=== PATIENT | male | born 1985 | race Two or more races ===

== ENCOUNTER 2020-11-19 11:23 | Inpatient (IN) | payer OTHER ==
[~2020-11-19] VITALS: Ht 170.2 cm; Wt 65.8 kg
--- NOTE | 2020-11-19 11:50 | NUR ---
L QUADRANT PAIN, HAND TREMORS SINCE 9AM. ADMITS TO DAILY ETOH. PATIENT A/OX4, BREATHING EVEN AND UNLABORED, NO SOB NOTED. NO DISTRESS NOTED. PLACED ON THE INTERVENTION TEACHER.
[2020-11-19] MEDS ORDERED: MAG HYDROX/AL HYDROX/SIMETH 30 ML UDC ONE (12:25)
[2020-11-19] MEDS ORDERED: ONDANSETRON HCL/PF 4 MG/2 ML VIAL IVP ONE (12:30)
[2020-11-19] MEDS ORDERED: IV NS 0.9% 1,000 ML BAG IV ONE ×2 (12:30→14:30)
[2020-11-19] MEDS ORDERED: MAG HYDROX/AL HYDROX/SIMETH 30 ML UDC PO ONE (12:30)
[2020-11-19] MEDS ORDERED: ONDANSETRON HCL/PF 4 MG/2 ML VIAL ONE (12:41)
[2020-11-19 12:56] LABS: BASOPHILS # (AUTO) 0.2 K/uL (0.0-0.2); BASOPHILS % (AUTO) 3.5 % (0.0-2.0); EOSINOPHILS % (AUTO) 0.5 % (0.0-6.0); HEMATOCRIT 42 % (39-51); HEMOGLOBIN 14.1 g/dL (13.5-17.5); LYMPHOCYTES # (AUTO) 0.5 K/uL (0.8-4.8); LYMPHOCYTES % (AUTO) 11.3 % (20.0-44.0); MEAN CORPUSCULAR HGB CONC 33 g/dl (31.0-36.0); MEAN CORPUSCULAR VOLUME 96 fL (80-96); MONOCYTES # (AUTO) 0.5 K/uL (0.1-1.30); MONOCYTES % (AUTO) 10.8 % (2.0-12.0); NEUTROPHILS # (AUTO) 3.4 K/uL (1.8-8.9); NEUTROPHILS % (AUTO) 73.9 % (43.0-81.0); PLATELET COUNT (AUTO) 133 K/uL (150-450); RED BLOOD CELL COUNT(AUTO) 4.42 MIL/uL (4.5-6.0); WHITE BLOOD COUNT (AUTO) 4.6 K/uL (4.3-11.0)
[2020-11-19 13:17] LABS: CALCIUM, SERUM 8.3 mg/dL (8.5-10.1); CARBON DIOXIDE 30 mmol/L (21-32); CHLORIDE 103 mmol/L (98-107); CREATININE 0.8 mg/dL (0.6-1.3); GLUCOSE 103 mg/dL (74-106); POTASSIUM 3.9 mmol/L (3.5-5.1); SODIUM SERUM 143 mmol/L (136-145); UREA NITROGEN, BLOOD 5 mg/dL (7-18)
[2020-11-19 13:23] LABS: ALANINE AMINOTRANSFERASE 103 U/L (12-78); ALKALINE PHOSPHATASE 114 U/L (46-116); ASPARTATE AMINOTRANSFERASE 87 U/L (15-37); BILIRUBIN,DIRECT 0.2 mg/dL (0.0-0.2); BILIRUBIN,TOTAL 0.5 mg/dL (0.2-1.0); TOTAL PROTEIN, SERUM 7.5 g/dL (6.4-8.2)
[2020-11-19 14:08] LABS: LIPASE 5783 U/L (73-393)
[2020-11-19] MEDS ORDERED: MORPHINE SULFATE INJ 2 MG/ML DISP.SYRIN IV ONE (14:30)
[2020-11-19] MEDS ORDERED: MORPHINE SULFATE INJ 4 MG/ML DISP.SYRIN ONE (14:31)
--- NOTE | 2020-11-19 15:33 | NUR ---
MELONY CALLED. AWAITING HOSPITALIST CALL BACK.
[2020-11-19] MEDS ORDERED: Z GUARD REMEDY 2 OZ OINT TP PRN (16:00)
[2020-11-19] MEDS ORDERED: ONDANSETRON HCL/PF 4 MG/2 ML VIAL IVP PRN (16:00)
[2020-11-19] MEDS ORDERED: MAGNESIUM HYDROXIDE 30 ML UDC PO PRN (16:00)
[2020-11-19] MEDS ORDERED: ACETAMINOPHEN 325 MG TABLET PO PRN (16:00)
[2020-11-19] MEDS ORDERED: HYDROCODONE/APAP 5/325MG TABLET PO PRN (16:00)
[2020-11-19] MEDS ORDERED: MAG HYDROX/AL HYDROX/SIMETH 30 ML UDC PO PRN (16:00)
[2020-11-19] MEDS ORDERED: ZOLPIDEM TARTRATE 5 MG TABLET PO PRN (16:00)
--- NOTE | 2020-11-19 16:44 | NUR ---
BED 306-1 TELE
--- NOTE | 2020-11-19 16:48 | NUR ---
REPORT GIVEN TO YESICA BUTCHER FOR MG.
--- NOTE | 2020-11-19 17:19 | NUR ---
PATIENT A/OX4, BREATHING EVEN AND UNLABORED, NO SOB NOTED. NEEDS ATTENDED. PATIENT TRANSFERRED TO ROOM 306-1 IN STABLE CONDITION.
[2020-11-19 17:45] VITALS: BP 134/76
--- NOTE | 2020-11-19 17:45 | NUR ---
FEATURES REPORTER ADMITTING NOTES RECEIVED PATIENT FROM ER IN MEDICALLY STABLE CONDITION. PATIENT IN MILD PAIN AND WITH BODY TREMORS. VITAL SIGNS WITHIN NORMAL LIMITS. TELE MONITOR WITH CURRENT READING OF NSR 64. IV ACCESS ON LAC G #18. SAFETY PRECAUTIONS IN PLACE; BED IN LOW POSITION AND LOCKED, RAILS UP X2, CALL LIGHT WITHIN REACH. WILL CONTINUE TO MONITOR PATIENT.
[2020-11-19] MEDS: IV D5/0.45 NACL 1,000 ML IV PRN (18:07)
--- NOTE | 2020-11-19 18:46 | NUR ---
DIRECTOR OF LOSS PREVENTION CLOSING NOTES PATIENT REMAINS IN BED, AWAKE, A/O X4. PATIENT ON ROOM AIR; BREATHING EVEN AND UNLABORED AT THIS TIME, NO SOB PRESENT. COMPLAINING OF PAIN. TELE MONITOR WITH CURRENT READING OF NSR. IV ACCESS ON LAC G #18 RUNNING D5 1/2 NS. ALL NEEDS ATTENDED. SAFETY PRECAUTIONS IN PLACE; BED IN LOW POSITION AND LOCKED, RAILS UP X2, CALL LIGHT WITHIN REACH. WILL ENDORSE TO CURB HOP NURSE.
[2020-11-19 18:50] LABS: BILIRUBIN,URINE NEGATIVE (NEGATIVE); COLOR,URINE YELLOW (YELLOW); LEUKOCYTE ESTERASE ,URINE NEGATIVE (NEGATIVE); NITRITE, URINE NEGATIVE (NEGATIVE); PH,URINE 6.5 (5.0-8.0); PROTEIN,URINE NEGATIVE (NEGATIVE); UGLUCOSE NEGATIVE (NEGATIVE); UROBILINOGEN,URINE 0.2 EU/dL (0.2)
[2020-11-19] MEDS: MORPHINE SULFATE INJ 2 MG/ML DISP.SYRIN IV PRN (18:52)
--- NOTE | 2020-11-19 18:54 | NUR ---
SENIOR SALES EXECUTIVE NOTES PATIENT COMPLAINING OF PAIN 9 OUT OF 10 IN UPPER LEFT QUADRANT. PRN MORPHINE IV ADMINISTERED. WILL REASSESS.
--- NOTE | 2020-11-19 19:10 | NUR ---
RN OPENING NOTE PT IN BED, AWAKE, WATCHING TV. A/OX4, STATES PAIN IS SUBSIDING.NOTED HAND TREMORS WHEN HE MOVES. RESPIRATIONS EVEN AND UNLABORED. HE DENIES SOB. ON ROOM AIR. IV SITE L-AC #20 INTACT/PATENT, RUNNING D5 1/2NS @150 ML/HR. PT IN NO ACUTE DISTRESS. SAFETY MEASURES IN PLACE, BED IN LOWEST LOCKED POSITION, S/R UP X2, CALL LIGHT WITHIN REACH.
[2020-11-19 20:00] VITALS: BP 110/46
--- NOTE | 2020-11-19 20:15 | NUR ---
RN NOTE PT WANTS TO GO TO THE BR BUT IS UNABLE TO AMBULATE WELL D/T BODY TREMORS. PROVIDED BEDSIDE COMMODE AND ASSISTED TO TRANSFER FROM BED TO COMMODE. LOCO.WELL.
[2020-11-19] MEDS: LORAZEPAM INJ 2 MG/ML VIAL IV PRN (20:22)
--- NOTE | 2020-11-19 20:22 | NUR ---
RN NOTE C/O ANXIETY AND BODY TREMORS. GIVEN ATIVAN 1MG IV ORDERED. WILL CONT TO MONITOR.
--- NOTE | 2020-11-19 21:00 | NUR ---
RN NOTE REASSESSED, PT STATES HE FEELS BETTER AND WITH LESS TREMORS. MADE COMFORTABLE IN BED, KEPT LOW STIMULI WITH LIGHTS DIMMED. WILL CONT TO MONITOR.
[2020-11-20] VITALS (11 sets, daily range): BP systolic 108–121; BP diastolic 61–72
[2020-11-20] MEDS: IV D5/0.45 NACL 1,000 ML IV PRN ×4 (01:33→21:41)
[2020-11-20] MEDS: MORPHINE SULFATE INJ 2 MG/ML DISP.SYRIN IV PRN ×2 (01:34→09:28)
[2020-11-20 06:17] LABS: BASOPHILS # (AUTO) 0.1 K/uL (0.0-0.2); BASOPHILS % (AUTO) 1.7 % (0.0-2.0); HEMATOCRIT 42 % (39-51); LYMPHOCYTES # (AUTO) 0.5 K/uL (0.8-4.8); LYMPHOCYTES % (AUTO) 9.9 % (20.0-44.0); MEAN CORPUSCULAR HGB CONC 34 g/dl (31.0-36.0); MEAN CORPUSCULAR VOLUME 96 fL (80-96); MONOCYTES # (AUTO) 0.5 K/uL (0.1-1.30); NEUTROPHILS # (AUTO) 4.2 K/uL (1.8-8.9); NEUTROPHILS % (AUTO) 78.4 % (43.0-81.0); PLATELET COUNT (AUTO) 115 K/uL (150-450); RED BLOOD CELL COUNT(AUTO) 4.36 MIL/uL (4.5-6.0); WHITE BLOOD COUNT (AUTO) 5.3 K/uL (4.3-11.0)
--- NOTE | 2020-11-20 06:44 | NUR ---
RN CLOSING NOTE RESTING IN BED, EASILY AROUSABLE TO STIMULI. DENIES PAIN AT THIS TIME. NO SOB. PT USED URINAL TO VOID. IV SITE L-AC INTACT/PATENT, RUNNING D5 1/2NS @150ML/HR. TELE MONITOR CURRENTLY READS SR, HR 63. NO ACUTE DISTRESS NOTED. SAFETY MEASURES MAINTAINED.
[2020-11-20 07:16] LABS: CALCIUM, SERUM 7.7 mg/dL (8.5-10.1); CREATININE 0.8 mg/dL (0.6-1.3); MAGNESIUM 2.1 mg/dL (1.8-2.4); PHOSPHORUS 3.3 mg/dL (2.5-4.9); POTASSIUM 3.6 mmol/L (3.5-5.1)
[2020-11-20 07:21] LABS: THYROID STIMULATING HORMONE 2.632 uIU/mL (0.358-3.74)
--- NOTE | 2020-11-20 07:42 | NUR ---
QUALITY CONTROL SCIENTIST OPENING NOTES RECEIVED PT IN BED, AWAKE, A/OX4, ON ROOM AIR TOLERATING WELL, NO S/SX OF ACUTE DISTRESS NOTED, NOTED WITH HAND TREMORS WHEN HE AMBULATES. RESPIRATIONS EVEN AND UNLABORED. HE DENIES PAIN AT THIS TIME. IV SITE ON L-AC #20 INTACT/PATENT, ONGOING D5 1/2NS @150 ML/HR. REINFORCED NPO. SAFETY MEASURES IN PLACE, BED IN LOWEST LOCKED POSITION, S/R UP X2, CALL LIGHT WITHIN REACH. WILL CONTINUE TO MONITOR PATIENT ACCORDINGLY. Addendum: 11/20/20 at 0746 by KORINA GORDILLO RN ON EXTERNAL MONITOR SHOWING SR HR AT 62.
[2020-11-20] MEDS: PANTOPRAZOLE 40 MG VIAL IV SCH (08:13)
--- NOTE | 2020-11-20 13:00 | NUR ---
RN NOTES SEEN AND EXAMINED ON ROUNDS BY DR. CRAWFORD WITH ORDERS MADE AND CARRIED OUT. PATIENT ADVANCED TO CLEAR LIQUIDS DIET. PATIENT ABLE TO TOLERATE, NO N/V NOTED.
--- NOTE | 2020-11-20 18:22 | NUR ---
DRINK MIXER CLOSING NOTES PT IN BED, AWAKE, A/OX4, ON ROOM AIR TOLERATING WELL, NO S/SX OF ACUTE DISTRESS NOTED, NOTED WITH HAND TREMORS NOTED. ON ROOM AIR, RESPIRATIONS EVEN AND UNLABORED. HE DENIES PAIN AT THIS TIME. IV SITE ON L-AC #20 INTACT/PATENT, ONGOING D5 1/2NS @150 ML/HR. ON CLEAR LIQUID DIET. ON EXTERNAL MONITOR SHOWING SR HR AT 86. SAFETY MEASURES IN PLACE, BED IN LOWEST LOCKED POSITION, S/R UP X2, CALL LIGHT WITHIN REACH. ALL NEEDS ATTENDED AND MET. DUE MEDS GIVEN ORDERED. WILL ENDORSE TO ONCOMING SHIFT FOR MG.
--- NOTE | 2020-11-20 19:43 | NUR ---
DESULFURIZER OPERATOR NOTE PATIENT IN BED. A/OX4. NO S/S OF APPARENT DISTRESS. DENIES PAIN. TELE MONITOR READING SINUS RHYTHM 65. IV D5 1/2 NS RUNNING @150 ML/HR. SAFETY IN PLACE. WILL CONTINUE TO MONITOR.
[2020-11-21] VITALS: BP 121/61
[2020-11-21 04:00] VITALS: BP 106/70
[2020-11-21 04:36] VITALS: BP 106/70
[2020-11-21] MEDS: IV D5/0.45 NACL 1,000 ML IV PRN ×2 (05:32→12:11)
--- NOTE | 2020-11-21 06:26 | NUR ---
CLAIM SPECIALIST CLOSING NOTE PATIENT IN BED. PATIENT A/OX4. WITH NOTICEABLE TREMORS. NO S/S OF APPARENT DISTRESS ON ROOM AIR. NO C/O PAIN. TELE MONITOR READING SINUS RHYTHM 67. IV D5 NS RUNNING AT 150CC/HR. ALL NEEDS ATTENDED. SAFETY KEPT IN PLACE THE WHOLE SHIFT. NO SIGNIFICANT CHANGE SINCE LAST SHIFT. WILL ENDORSE CARE TO MORNING SHIFT RN.
[2020-11-21 06:32] LABS: BASOPHILS % (AUTO) 0.7 % (0.0-2.0); EOSINOPHILS % (AUTO) 1.5 % (0.0-6.0); HEMATOCRIT 42 % (39-51); HEMOGLOBIN 14.1 g/dL (13.5-17.5); LYMPHOCYTES # (AUTO) 0.7 K/uL (0.8-4.8); LYMPHOCYTES % (AUTO) 11.3 % (20.0-44.0); MEAN CORPUSCULAR HGB CONC 33 g/dl (31.0-36.0); MEAN CORPUSCULAR VOLUME 97 fL (80-96); MONOCYTES # (AUTO) 0.3 K/uL (0.1-1.30); NEUTROPHILS # (AUTO) 5.3 K/uL (1.8-8.9); NEUTROPHILS % (AUTO) 81.5 % (43.0-81.0); PLATELET COUNT (AUTO) 110 K/uL (150-450); RED BLOOD CELL COUNT(AUTO) 4.37 MIL/uL (4.5-6.0); WHITE BLOOD COUNT (AUTO) 6.5 K/uL (4.3-11.0)
[2020-11-21 06:54] LABS: CALCIUM, SERUM 8.3 mg/dL (8.5-10.1); CREATININE 0.7 mg/dL (0.6-1.3); MAGNESIUM 2.3 mg/dL (1.8-2.4); PHOSPHORUS 3.3 mg/dL (2.5-4.9); POTASSIUM 3.3 mmol/L (3.5-5.1)
[2020-11-21 07:08] LABS: ALBUMIN 3.4 g/dL (3.4-5.0); BILIRUBIN,DIRECT 0.4 mg/dL (0.0-0.2); BILIRUBIN,TOTAL 1.3 mg/dL (0.2-1.0); TOTAL PROTEIN, SERUM 6.8 g/dL (6.4-8.2)
--- NOTE | 2020-11-21 07:40 | NUR ---
INSURANCE AGENT OPENING NOTES RECEIVED PATIENT IN BED, AWAKE, AND WATCHING TV. A/O X4. STABLE ON ROOM AIR - NO SOB NOTED. NO DISTRESS/DISCOMFORT NOTED. PATIENT HAS HAND TREMORS WHEN HE AMBULATES. IV ACCESS TO LEFT AC #20 - RUNNING D5 1/2 NS @150 ML/HR. ON CLEAR LIQUID DIET. SAFETY MEASURES IN PLACE, CALL LIGHT WITHIN REACH. WILL CONTINUE TO MONITOR.
[2020-11-21 08:00] VITALS: BP 111/70
[2020-11-21] MEDS: PANTOPRAZOLE 40 MG VIAL IV SCH (08:12)
[2020-11-21] MEDS: LORAZEPAM INJ 2 MG/ML VIAL IV PRN ×2 (10:20→15:49)
[2020-11-21] MEDS ORDERED: POTASSIUM CL. PREMIX PERIPHER. 50 ML IV SCH (10:30)
--- NOTE | 2020-11-21 11:20 | NUR ---
CLINICAL MASSAGE THERAPIST NOTE WHILE ROUNDING ON PATIENT, PATIENT BECAME VERY ANXIOUS AND FRUSTRATED. STATED HE DID NOT KNOW HIS NAME OR WHERE HE WAS. STATED HE WAS SPEAKING TO SOMEONE ON THE FLOOR WHO WAS TELLING HIM TO WRITE DOWN A NUMBER. ALSO STATES HE IS HEARING VOICES. CHARGE NURSE AWARE, DR CRAWFORD AWARE. DR. CRAWFORD ORDERED LIBRIUM 50MG BID PO - ORDER NOTED AND CARRIED OUT.
[2020-11-21 12:00] VITALS: BP 112/86
[2020-11-21] MEDS ORDERED: POTASSIUM CHLORIDE 20 MEQ TAB.PRT.SR PO ONE (12:00)
[2020-11-21] MEDS ORDERED: CHLORDIAZEPOXIDE HCL 25 MG CAPSULE PO SCH ×2 (13:04→17:00)
--- NOTE | 2020-11-21 13:15 | NUR ---
SALES SERVICE PROMOTER NOTE PATIENT IS BECOMING INCREASINGLY MORE CONFUSED. PATIENT CHEWED THE IV TUBING TO BREAK FREE FROM THE PUMP BECAUSE HE STATED THAT SOMEONE WAS TRYING TO HURT HIM. ADMINISTERED LIBRIUM 50MG PO PER DR ORDER. WILL CONTINUE TO MONITOR.
--- NOTE | 2020-11-21 14:30 | NUR ---
SS consult SS consult requested for ETOH use. Pt is a 35-year-old, male. SW met with pt at his bedside in the med-surg unit. Pt was alert and oriented x4. Pt was shaking. Pts behavior was cooperative. Pt appeared well-groomed and appropriately dressed. Pt currently lives with his spouse, Nataliia Cagle at [id number] [place] [address]. [address], [place] [address]; [phone]. Pt has no income at this time but has support from his family. Pt reported ETOH use and stated that he drinks around 5-6 beers every few months but denied recent use. Pt denied hx of drug use. Pt denied hx of mental illness or hallucinations. Pt denied current SI/HI. SW offered the pt resources for substance abuse. Pt accepted the resources and thanked CARMELLA. CARMELLA discussed d/c plans with the pt. Pt plans to return to his prior living arrangement at home and will be provided transportation by his spouse. PLAN: Pt plans to return to his prior living arrangement at home with his spouse. No further SS intervention at this time, however, SW will remain available as needed. RESOURCES: Substance use resources provided included: [facility] ([facility]) ; [facility] [address] [facility] [place] [address] ; [facility] [address] [facility] [address] ; [facility] [address] [facility] [id number] ; [facility] [address] [facility] [id number] ; [facility] [address] [facility] [phone] ; [facility] [place]; [facility]; [facility]; [facility]
[2020-11-21 16:00] VITALS: BP 123/78
[2020-11-21] MEDS ORDERED: LACTULOSE 10 G/15 ML UDC (PYXIS) PO SCH (18:30)
--- NOTE | 2020-11-21 18:32 | NUR ---
CAMPUS RECRUITING COORDINATOR OPENING NOTES RECEIVED PATIENT IN BED, AWAKE, AND WATCHING TV. A/O X4. STABLE ON ROOM AIR - NO SOB NOTED. NO DISTRESS/DISCOMFORT NOTED. PATIENT HAS HAND TREMORS WHEN HE AMBULATES. IV ACCESS TO LEFT AC #20 - RUNNING D5 / NS @150 ML/HR. ON CLEAR LIQUID DIET. SAFETY MEASURES IN PLACE, CALL LIGHT WITHIN REACH. WILL CONTINUE TO MONITOR. Addendum: 11/21/20 at 1853 by RAJ NEWMAN RN ACCIDENTAL NOTE. ERROR.
--- NOTE | 2020-11-21 18:53 | NUR ---
AMA NOTE PATIENT LEFT FACILITY AMA. PATIENT WAS A/O X2, STATED HE NEEDED TO GET HOME AND HAD TO LEAVE [facility]. AFTER MULTIPLE ATTEMPTS WITH SECURITY AND MAJORITY OF THE NURSING FLOOR, WE COULD NOT KEEP HIM HERE. IV WAS REMOVED. WRISTBAND REMOVED. PATIENT LEFT FACILITY ACCOMPANIED BY ASHVIN DOOLEY. PATIENT STATED HE WAS GOING TO WAIT FOR HIS FRIEND TO PICK HIM UP. AWARE. CHARGE NURSE AWARE.
[2020-11-22] MEDS ORDERED: PANTOPRAZOLE 40 MG TABLET.DR PO SCH (07:30)
[2020-11-22] MEDS ORDERED: LACTULOSE 10 G/15 ML UDC (PYXIS) PO SCH (18:00)
== END 2020-11-21 18:50 | disposition left against medical advice (07) | DRG 282 ==
LOC: ER 11:26 → MED 17:05 → TELE 17:59
PROVIDERS: ADMIT Student in an Organized Health Care Education/Training Program; ATTEND Student in an Organized Health Care Education/Training Program
DX: K85.20 Alcohol induced acute pancreatitis without necrosis or infection (principal); D69.6 Thrombocytopenia, unspecified; G31.2 Degeneration of nervous system due to alcohol; Z20.822 Contact with and (suspected) exposure to COVID-19; Y90.6 Blood alcohol level of 120-199 mg/100 ml; F10.139 Alcohol abuse with withdrawal, unspecified; R74.01 Elevation of levels of liver transaminase levels
CPT/HCPCS: 36415; 76705-TC; 80048-TC; 80061-TC; 80076-TC; 82140-TC; 83690-TC; 83735-TC; 84100-TC; 84443-TC; 84484-TC; 85025-TC; 87081-TC; C9113; C9803; G0378; G0480; J2060; J2270; J2405; J3480; J3490; J7030